=== PATIENT | female | born 1955 | race Caucasian/White ===

== ENCOUNTER 2016-10-07 20:31 | Emergency (ER) | payer BC ==
[~2016-10-07] VITALS: Ht 167.6 cm; Wt 120.2 kg
--- NOTE | ~2016-10-07 | EKG ---
[address] [address] ELECTROCARDIOGRAM REPORT Name: STEPHANTIMOTEO Torres [id number] Admission: 10/07/16 Attend Phys: Discharge: 10/07/16 Date of : 53 Report #: [id number] THIS REPORT FOR: //name// [facility] ED Test Date: 2016-10-07 Test Time: 20:32:26 Pat Name: TIMOTEO ROTHMAN Department: Room: [facility] Gender: F [employer] Professor: RENUKA : 1955 Requested By: Belle Pryor Order Number: [id number] MD: Rohit Dee Measurements Intervals [place] Rate: 78 P: 37 WI: 147 QRS: 17 QRSD: 97 T: 28 QT: 417 QTc: 476 Interpretive Statements Sinus rhythm Normal tracing No previous ECG available for comparison Electronically Signed On 10-08-2016 7:58:23 CDT by Rohit Dee [email or web address] <ELECTRONICALLY SIGNED> By: Rohit Dee MD, [facility] 10/08/16 0758 2032 31 Rohit Dee MD, FACC /EPI
[2016-10-07 20:55] VITALS: BP 150/73
[2016-10-07] MEDS ORDERED: ZYRTEC10 M5 PO (21:06)
[2016-10-07] MEDS ORDERED: NORVASC10 MG PO (21:06)
[2016-10-07] MEDS ORDERED: FISH OIL + D31 EACH PO (21:07)
[2016-10-07] MEDS ORDERED: FLONASE 0.05%50 MCG NASAL (21:07)
[2016-10-07] MEDS ORDERED: ASPIR 8181 MG PO (21:07)
[2016-10-07 21:21] LABS: HEMATOCRIT 39.6 % (37.0-47.0); HEMOGLOBIN 13.7 gm/dL (12.0-15.0); MCH 31.7 pg (26.0-34.0); MCHC 34.6 % (28.0-37.0); MCV 91.7 fL (80.0-100.0); RBC 4.32 mil/uL (4.20-5.00); RDW 14.3 % (10.5-14.5); WBC 12.2 thou/uL (4.0-11.0)
[2016-10-07 21:35] LABS: POTASSIUM 3.6 mmol/L (3.5-5.1)
[2016-10-07 21:36] LABS: CALCIUM 9.1 mg/dL (8.5-10.1)
[2016-10-07 21:58] LABS: ALBUMIN 3.7 g/dL (3.4-5.0); TOTAL BILIRUBIN 0.4 mg/dL (<0.1-1.0); TOTAL PROTEIN 6.9 g/dL (6.4-8.2)
[2016-10-07] MEDS ORDERED: NITROSTAT0.4 M1 SL (22:22)
[2016-10-07 22:27] VITALS: BP 149/55; BP 155/65
== END 2016-10-07 22:36 | disposition home or self-care (01) ==
LOC: ER 20:31 → EROBS 22:09 → ER 22:09
PROVIDERS: Physician Assistant
DX: R07.89 Other chest pain (principal); I10 Essential (primary) hypertension; R73.9 Hyperglycemia, unspecified; F17.210 Nicotine dependence, cigarettes, uncomplicated; F10.99 Alcohol use, unspecified with unspecified alcohol-induced disorder; Z88.1 Allergy status to other antibiotic agents

== ENCOUNTER 2019-03-12 16:12 | Emergency (ER) | payer OTHER ==
[~2019-03-12] VITALS: Ht 167.6 cm; Wt 113.4 kg
[~2019-03-12 16:12] MED LIST: ASPIR 8181 MG PO; FISH OIL + D31 EACH PO; FLONASE 0.05%50 MCG NASAL; NITROSTAT0.4 M1 SL; NORVASC10 MG PO; PROAIR HFA8.5 GM INH; TESSALON PERLE100 MG PO; ZYRTEC10 M5 PO
[2019-03-12 16:52] LABS: ABSOLUTE NEUTROPHILS 11.7 thou/uL (1.4-8.2); BASOPHILS 0.3 % (0.0-2.0); EOSINOPHILS 0.7 % (0.0-3.0); HEMATOCRIT 40.1 % (37.0-47.0); HEMOGLOBIN 13.4 gm/dL (12.0-15.0); LYMPHOCYTES 15.3 % (24.0-44.0); MCH 29.3 pg (26.0-34.0); MCHC 33.4 g/dL (28.0-37.0); MCV 87.9 fL (80.0-100.0); MONOCYTES 1.2 % (1.0-8.0); PLATELET COUNT 524 thou/uL (150-400); POLYS 82.5 % (36.0-66.0); RBC 4.56 mil/uL (4.20-5.00); RDW 15.1 % (10.5-14.5); WBC 14.2 thou/uL (4.0-11.0)
[2019-03-12] MEDS ORDERED: METFORMIN HCL500 M3 PO (16:59)
[2019-03-12] MEDS ORDERED: HYDROCHLOROTHIA25 M2 PO (17:00)
[2019-03-12] MEDS ORDERED: LORAZEPAM 0.50.5 MG PO (17:01)
[2019-03-12 17:02] LABS: ANION GAP 14 mmol/L (7-16); BUN 31 mg/dL (7-18); CALCIUM 9.1 mg/dL (8.5-10.1); CHLORIDE 89 mmol/L (98-107); CO2 21 mmol/L (21-32); CREATININE 2.1 mg/dL (0.6-1.0); GLUCOSE 209 mg/dL (74-106); SODIUM 124 mmol/L (136-145)
[2019-03-12] MEDS ORDERED: COZAAR 25 MG TA25 M2 PO (17:02)
[2019-03-12 17:03] LABS: POTASSIUM 4.8 mmol/L (3.5-5.1)
[2019-03-12] MEDS ORDERED: SINGULAIR 10 MG10 MG PO (17:03)
[2019-03-12] MEDS ORDERED: SUPER THERAVIT1 EACH PO (17:04)
[2019-03-12] MEDS ORDERED: SERTRALINE HCL100 MG PO (17:04)
[2019-03-12 17:09] LABS: ALBUMIN 3.2 g/dL (3.4-5.0); DIRECT BILIRUBIN < 0.1 mg/dL (<0.1-0.2); SGOT 47 U/L (15-37); SGPT 25 U/L (30-65); TOTAL BILIRUBIN 1.2 mg/dL (<0.1-1.0); TOTAL PROTEIN 6.2 g/dL (6.4-8.2)
[2019-03-12 18:32] LABS: URINE BILIRUBIN 1+ (Negative); URINE BLOOD TRACE (Negative); URINE CLARITY CLEAR; URINE COLOR YELLOW; URINE GLUCOSE-RANDOM* NEGATIVE (Negative); URINE KETONES TRACE (Negative); URINE LEUKOCYTES-REFLEX TRACE (Negative); URINE NITRITE-REFLEX NEGATIVE (Negative); URINE PROTEIN (DIPSTICK) 2+ (Negative); URINE SPECIFIC GRAVITY >= 1.030 (1.005-1.035); URINE UROBILINOGEN 0.2 E.U./dl (0.2-1.0)
[2019-03-12 18:38] LABS: SQUAMOUS >10 Many /LPF (0-3)
[2019-03-12 18:41] LABS: CASTS None Seen /LPF (None Seen); HYALINE CASTS 4-10 Moderate /LPF (None Seen)
[2019-03-12 18:42] LABS: AMORPHOUS URATES Few /LPF (None Seen); BACTERIA-REFLEX 1-9 Few /HPF (None Seen); URINE WBC-REFLEX 0-5 Rare /HPF (0-5)
[2019-03-12 18:43] LABS: ICTOTEST (BILI CONFIRMATORY) Positive (Negative); URINE RBC 0-2 Rare /HPF (0-2)
[2019-03-12] MEDS ORDERED: ZOFRAN ODT4 MG PO (18:52)
[2019-03-12 19:16] VITALS: BP 118/44
== END 2019-03-12 19:10 | disposition home or self-care (01) ==
LOC: ER 16:12
PROVIDERS: Emergency Medicine
DX: R73.9 Hyperglycemia, unspecified (principal); N17.9 Acute kidney failure, unspecified; I10 Essential (primary) hypertension; E86.0 Dehydration; L50.9 Urticaria, unspecified; R11.10 Vomiting, unspecified; F17.210 Nicotine dependence, cigarettes, uncomplicated